=== PATIENT | female | born 1935 | race Two or more races ===

== ENCOUNTER 2017-02-05 19:54 | Observation (INO) | payer MEDICARE, MEDICAID ==
[~2017-02-05] VITALS: Ht 167.6 cm; Wt 61.3 kg
--- NOTE | 2017-02-05 20:20 | ED.REPORT ---
HPI-General Illness Date of Service Feb 05, 2017 ED Provider: Brock Gastelum MD The patient is a 81 year old female w/ a hx of DM2 and alcoholism who presents to the ED via EMS with 6 cm stage 4 sacral ulcer concerned that she is unable to adequately care for herself at home. She has been seen at [facility] 3 times in the last week and all 3 times has been found to not be detainable and has refused any care, hospitalization or intervention. Upon arrival here to [facility] the patient adamantly refuses any treatment or intervention. She states that she does not want to be here and would like to go home and be with her cat. She states that she does not have any food at home and has not eaten anything for 10 days. She states that she does not have a casting machine adjuster and admits that she is unable to care for herself at home. She states she is unable to leave her house to get groceries and that she has no one to get groceries for her. Patient states that she does not want to " the same time refusing hospitalization, refuses IV, refuses laboratory studies and demands to be discharged with a ride home. She denies any suicidal ideation. Nursing Notes Stated Complaint: REFUSING CARE AT HOME Nursing Notes Reviewed: Yes Allergies: Coded Allergies: No Known Allergies (Unverified , 02/06/17) Scheduled Amitriptyline (Amitriptyline) 25 Mg Tab 25 MG PO HS Aspirin (Aspirin) 81 Mg Tablet 81 MG PO DAILY Citalopram (Citalopram) 10 Mg Tablet 10 MG PO DAILY Furosemide (Furosemide) 40 Mg Tablet 40 MG PO QAM Metoprolol Tartrate (Metoprolol Tartrate) 25 Mg Tablet 25 MG PO BID Multivitamin (Multi Vitamin Daily) 1 Each Tablet 1 EACH PO DAILY Scheduled PRN Acetaminophen (Acetaminophen) 500 Mg Tablet 500 MG PO Q6H PRN PRN For Pain Ipratropium/Albuterol Sulfate (Iprat-Albut 0.5-3(2.5) mg/3 mL Inhalant Soln) 3 Ml Ampul.neb 3 ML IH Q6 PRN PRN For Shortness of Breath Sennosides (Senna) 8.6 Mg Tablet 8.6 MG PO BID PRN PRN For Constipation General Time Seen by MD: 20:14 Chief Complaint Other (stage 4 sacroiliitis ulcer) Hx Obtained From: Patient Arrived By: Ambulance Sudden in Onset?: Yes Onset Occurred: Onset unknown Symptom Duration: Since onset Location: : Back Severity: Current: No pain currently Associated with: Reports: Bleeding, Discharge Pertinent Negative: Pt denies other symptoms Past Medical History Past Medical History DM Smoking History Unknown if Ever Smoker Social History alcoholic lives by herself Other Social History: Local resident Ambulatory Status Independent Review of Systems feces on her Full Review of Systems Skin: Reports Rash (stage 4 sacroiliitis ulcer) Neurologic: Denies: Change LOC, Confusion, Dizziness, Headache, Lightheaded Psychiatric: Reports: Agitation Complete sys rev & neg: except as marked. Physical Exam Vital Signs reviewed Initial VS: Reviewed General/Constitutional: Awake chronically unwell appearing feces on herself indwelling holguin catheter with dark foul smelling urine Head / Eyes: Atraumatic, Normocephalic face and scalp atraumatic Mouth: Positive: Mucous membranes dry Respiratory / Chest: Atraumatic, Breath sounds NL, Breath sounds = bilat, No respiratory distress Cardiovascular: Heart rate NL, Regular rhythm, Heart sounds NL Right Leg / Calf: Positive: Ecchymosis present Left Leg / Calf: Positive: Ecchymosis present scattered echymosis on LE and left chest wall Color / Condition: Positive: Lesion present... Rash / Lesion Notes: 6 cm stage 4 sacroiliitis ulcer exposed bone present oozing bloody, purulent material Neurologic: Oriented X3, Speech NL linear, organized, and able to repeatedly verbalize that she does not want treatment or come into hopsital did not appear confused, intoxicated and her neuro is normal Re-Eval/Medical Decision Med Decision/Clinical Course The patient is a 81 year old female w/ a hx of DM2 and alcoholism who presents to the ED via EMS with 6 cm stage 4 sacral ulcer concerned that she is unable to adequately care for herself at home. She has been seen at [facility] 3 times in the last week and all 3 times has been found to not be detainable and has refused any care, hospitalization or intervention. Upon arrival here to [facility] the patient adamantly refuses any treatment or intervention. She states that she does not want to be here and would like to go home and be with her cat. She states that she does not have any food at home and has not eaten anything for 10 days. She states that she does not have a casting machine adjuster and admits that she is unable to care for herself at home. She states she is unable to leave her house to get groceries and that she has no one to get groceries for her. Patient states that she does not want to " the same time refusing hospitalization, refuses IV, refuses laboratory studies and demands to be discharged with a ride home. She denies any suicidal ideation. Here in the emergency department the patient is chronically ill appearing, appears dehydrated and is covered in her own feces with a large sacral decubitus ulcer and exposed bone present. Despite the patient's obvious inability to care for herself at home she is cognitively intact and alert/ oriented. She is able to express insight into her current problems and inability to adequately care for herself. Despite my verbalized concerns to the patient that she is at significant risk of due to malnutrition, dehydration and infection she states that he will not consent to IV access, laboratory studies or admission to the hospital. She repeatedly adamantly demands to be discharged and taken home. Despite my significant concerns about this patient's welfare I do not see that she can necessarily be detained as she demonstrates decisional capacity. I made multiple attempts to contact the patient's children however they did not answer their phone. The patient was seen and evaluated by emergency department public health social worker Kena Sood who agreed that the patient demonstrated decisional capacity and was not detainable. We made multiple attempts to convince the patient to be admitted to the hospital however she continued to refuse admission or any treatment or intervention whatsoever. She did however except a meal which she ate and entirety. EMS was contacted to take the patient back to her care facility however they expressed concerns that the patient had been found in absolute squalor and was eating cat food in her apartment. EMS refused to take the patient home. I explained to the patient that while we could not detain her against her well that she had no ride home. At that point, the patient accepted admission to the hospital. This admission was further discussed with the hospital hospice plan administrator destination imagination coordinator who felt that this was the appropriate course of action. The patient was admitted to the hospitalist service and while I feel that she would benefit from further medical workup she continues to refuse at this time. It is our hope that the patient will eventually consent to further treatment and placement in a care facility as I do not feel that she is safe for discharge. Should she however continued to refuse intervention or additional support this will pose significant ethical dilemmas as she seems to be relatively cognitively intact with ability to make her own decisions. Time of Eval: 20:54 Re-Evaluation/Progress Note: Pt rechecked with public health social worker. She states that she is very hungry and has not eaten for [address] Josefina Hassan is the pt's PCP. Time of Eval: 22:34 Re-Evaluation/Progress Note: Informed pt that there is no way for her to be transported home. Plan for food and hospital admission. Consultation #1: Call Returned at: 20:36 Note: Called patient's daughter Marissa ([phone]) Call went to [employer]wail Consultation #2: Call Returned at: 20:54 Note: Case discussed with public health social worker. Consultation #3: Referral / Consult Name: Narciso Abreu MD Consulted With: Hospitalist Call Returned at: 22:43 Plant Production Worker: Agrees with eval, Agrees with plan Note: Case discussed with Dr. Abreu. Counseled Regarding: Diagnosis, Lab results, Need for admission Discharge & Departure Primary Impression: Failure to thrive Failure to thrive age range: in adult Qualified Code: R62.7 - Adult failure to thrive Additional Impressions: Sacral ulcer Non-pressure ulcer stage: unspecified non-pressure ulcer stage Qualified Code : L98.499 - Non-pressure chronic ulcer of skin of other sites with unspecified severity Dehydration Malnutrition Disposition: ADMITTED TO HOSPITAL Discharge Condition All VS Reviewed: Yes Condition: Stable Referrals: [facility] Residency [facility] Na Attestation Portion of this note were transcribed by Kay Gregory. I, Dr. Gastelum, personally performed the history, physical exam, and medical decision-making: I reviewed and confirmed the accuracy for the information in the transcribed note. Signed by: na Anderson, 02/05/17 2100 copies to: [facility] Res[facility] Brock Gastelum MD Feb 05, 2017 20:20 Kay Gregory Feb 05, 2017 20:29 Brock Gastelum MD Feb 05, 2017 20:20 Kay Gregory Feb 05, 2017 20:29
[2017-02-05 20:35] VITALS: BP 139/39; PULSE 60; RESP 22; O2SAT 98
[2017-02-05 21:35] VITALS: BP 121/79; PULSE 75; RESP 21
[2017-02-05] MEDS ORDERED: Alum-Mag Hydrox-Simeth 30 mL Suspension PO PRN (22:40)
[2017-02-05] MEDS ORDERED: Ondansetron 2 mg/mL 2 mL Inj IVPUSH PRN (22:40)
[2017-02-05] MEDS ORDERED: AMT25T PO (23:08)
[2017-02-05] MEDS ORDERED: METO25TA6 PO (23:08)
[2017-02-05] MEDS ORDERED: FURO40TA4 PO (23:08)
[2017-02-05] MEDS ORDERED: ACET-171 PO (23:08)
[2017-02-05] MEDS ORDERED: IPRA3AMP IH (23:08)
[2017-02-05] MEDS ORDERED: MULT-1018 PO (23:08)
[2017-02-05] MEDS ORDERED: CITA10TA9 PO (23:08)
[2017-02-05] MEDS ORDERED: SENN-133 PO (23:08)
[2017-02-05] MEDS ORDERED: ASPI-973 PO (23:13)
[2017-02-05] MEDS ORDERED: HYDR-4003 PO (23:13)
[2017-02-05] MEDS ORDERED: Albuterol-Ipratropium 3 mL Inhalation Solution INHALATION PRN (23:35)
--- NOTE | 2017-02-06 00:36 | NUR ---
Admit Pt arrived onto unit and transferred to bed by ED at approx 0002. Eleanor Garza RN gave report to this nurse. Pt extremely agitated and expressing disapproval at being at the hospital. Refusing care. A&O, Incontinent, House cath draining, VSS from earlier in ED, however, pt refusing currently. Cleaned patient from feces on bottom and carefully laid ACD pad on large 5-6cm deep wound on sacrum. Wound has purulent sanguinous fluid draining from site. Used chucks pads under patient. Attempting to make patient as comfortable as possible, pt preferring laying on right side. After some time listening and feeding applesauce and jello, patient rather pleasant and agreeable, but would not liked to be touched or examined in any way. Attempting to get some history from patient, but limited.
--- NOTE | 2017-02-06 01:22 | NUR ---
Refused Medication/Vital Signs/Turning Despite education, pt refusing amitriptyline ("I don't want any medications, I don't want to set off my alcoholism, you are sweet, but I don't take medication"), vital signs ("that would be the 5th time since I was here. they are normal!"), turning ("I don't want to be turned, or touched. I'm comfortable")
--- NOTE | 2017-02-06 01:25 | NUR ---
Hunger Pt expressed that she is starving and hasn't eaten in 10 days. Very pleased to be eating, as of yet, 2 puddings, 2 jellos, 1 applesauce. Appears she isn't done yet either. Pt pleasant and agreeable, however, refuses all other care.
--- NOTE | 2017-02-06 02:52 | PCM.HPMED ---
Subjective Date of Service Feb 06, 2017 Primary Provider: Admitting Physician: Narciso Abreu MD Primary Care Physician: Juventino Attending Physician: Narciso Abreu MD History of Present Illness: Patient is an 81-year-old woman who was brought to the [facility] emergency department by EMS after being declined services at [facility] emergency department due to multiple visits and patient refusing treatment. Reportedly, she presses her life alert button often and is bedridden and unable to take care of self, she reports not eating for the last 10 days because she does not have a caregiver. She says she is angry at the software design engineer brought her to the hospital after she told him not to, however she reportedly lays in her bed 24 hours a day, unable to walk, and has a substantial bedsore. In the ER vital signs were 36.8, pulse 60 heart rate 22 blood pressure 139/39 and 98% on room air. She declined all care only requesting food. States she is nauseous and has abdominal pain from not eating, and declined to answer other questions regarding her health for current review of systems stating "it is in the chart" and she is hungry. Due to the patient declining service, and only stating being hungry she was cleared for discharge whenever EMS stated they would not bring her back to her home due to her inability to care for herself, citing she was found eating cat food for survival in her home. beet worker in the emergency room physician in conjunction with Hospital optics engineer rat poisoner discussed the case, and when presented with the choices patient agreed for admission through the night. Review of Systems: Partial ROS obtained secondary to patient's refusal to answer many questions. 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 does not use currently) Hx Substance Use: No Hx Tobacco Use: No Smoking Status: Unknown if Ever Smoker Living Arrangement: Alone Exam Vital Signs Vital Sign - Last Date Time Temp Pulse Resp B/P Pulse Ox O2 Delivery O2 Flow Rate FiO2 02/05/17 21:35 36.8 75 21 121/79 02/05/17 20:35 98 Room Air Exam General: Laying in bed, no apparent distress. Foul-smelling, disheveled, unkept HEENT: Normocephalic, atraumatic, EOMI grossly, right eye is mildly erythematous , eyes are matted, there is substantial dried and crusty discharge around the eyes, halitosis, poor dentition, matted hair, very hard of hearing. Cardiovascular: Regular rate and rhythm, no clicks murmurs rubs, peripheral pulses 2/4 equal bilaterally Pulmonary: Very coarse breath sounds diffuse, expiratory wheezing, diffuse rhonchi. Wet cough. Abdominal: Soft to palpation, bowel sounds present 4, Negative rebound. Extremities: No edema appreciated. Bilateral feet are severely wounded, almost appeared to be traumatic in nature, toenails are cracked and flaking, foot drop. Neuro: Mild tremor to upper extremities when attempting to move spoon to her mouth MSK: Patient was unable to demonstrate inability to roll off of her left side, there is a substantial decubitus ulcer to her back -6 cm sacroiliac ulcer, with exposed bone, purulent and bloody discharge Assessment & Plan 81-year-old woman with severe self-neglect and inability to care for self, [facility] eating Food for survival, declines all medical care. Decubitus ulcer, present on admission, evaluation and treatment initiated. Wound care consultation Nursing wound management. Inability to care for self resulting in self-neglect, POA, active Social work found patient is competent and able to make self decisions. Full diet while here. Patient declines all help at this point manager copy and pediatric social worker consultations. DVT prophylaxis declined Pain management with home medications GI prophylaxis not indicated Patient admitted under observational status with expected length of stay less than 2 midnights for severity of present symptoms, complexities of treatment plan and risk for adverse events CODE STATUS: Full code Pain Evaluation: Adequate Pain Control VTE Prophylaxis: Other (Pt declining all medical services) Resuscitation Status: CPR: Attempt Resuscitation Attending Statement The patient was seen and examined together with Dr. Owen on 02/05 and I agree with the history, exam and plan as outlined in the note above. Juanito Lin DO Feb 06, 2017 02:52 Narciso Abreu MD Feb 06, 2017 19:34
--- NOTE | 2017-02-06 05:05 | NUR ---
Refusal to Turn Despite gentle coaxing and education, pt adamantly refused to turn even slightly to get a pillow under one side. Unable to assess pressure ulcer at this time. Pt A&O and understands her rights as a patient to refuse. Will continue to check on patient frequently and assess openness to turning at a later time.
--- NOTE | 2017-02-06 05:59 | PCM.PNMED ---
Subjective Date of Service Feb 06, 2017 Subjective Patient is seen and examined. She is refusing to participate in her medical care. She says that she has a lot of anger. She reiterated the fact that she is a recovered alcoholic, she gave me her medical history. She also told me that the paramedics would not take [facility] to [facility] because the hospital told him not to bring her there anymore. She seems to be cognizant of her medical conditions, chooses not to seek medical care. She says she has not eaten anything in 10 days before coming here and asking for food. She is refusing to be examined, refusing vitals labs, and a physical examination Exam Vital Signs Vital Sign - Last Date Time Temp Pulse Resp B/P Pulse Ox O2 Delivery O2 Flow Rate FiO2 02/05/17 21:35 36.8 75 21 121/79 02/05/17 20:35 98 Room Air Exam General: Laying in bed, no apparent distress. Foul-smelling, disheveled, unkept , hirsutism HEENT: Normocephalic, atraumatic, EOMI grossly, right eye is mildly erythematous , , halitosis, poor dentition, matted hair, very hard of hearing. Cardiovascular: Patient would not stop talking during this examination, unable to appreciate cardiac sounds Pulmonary: Very coarse breath sounds diffuse, expiratory wheezing, diffuse rhonchi. Wet cough. Abdominal: Soft to palpation, bowel sounds present 4, Negative rebound. Extremities: No edema appreciated. Bilateral feet are severely wounded, almost appeared to be traumatic in nature, toenails are cracked and flaking, foot drop. Neuro: Alert and oriented MSK: Patient was unable to demonstrate inability to roll off of her left side, there is a substantial decubitus ulcer to her back -6 cm sacroiliac ulcer, with exposed bone, purulent and bloody discharge Psych: Very irritable when asked to allow a physical examination She appears to have become a bit more n as more ppl asked her quesitons, IVs and Medications IV Fluids None Medications Reviewed: Medications were reviewed in detail Medications Amitriptyline, aspirin, citalopram, furosemide, metoprolol tartrate, multivitamin, DuoNeb, oxycodone Lab and Diagnostics Not performed Assessment & Plan 81-year-old woman with severe self-neglect and inability to care for self, presents via EMS after being found living in [place], eating Food for survival, declines all medical care. Decubitus ulcer, present on admission, evaluation and treatment initiated. -- Wound care consultation -- Nursing wound management. -- Oxycodone 5 mg every 4 hours when necessary as she is in terrible pain and return her to examine the wounds Inability to care for self resulting in self-neglect, POA, active -- I reviewed her ER documents admission time notes, she continues to refuse care and seems to be here only for food. -- Social work found patient is competent and able to make self decisions. -- Full diet while here. -- Patient declines all help at this point -- manager motor and social media coordinator consultations. -- Consulted Dr. Quick in the regimen decisional Capacity. The appreciate his recommendations Wheezing and cough: -- Albuterol treatments when necessary -- Tessalon Perles when necessary DVT prophylaxis declined -- Pain management with home medications -- GI prophylaxis not indicated Patient admitted under observational status with expected length of stay less than 2 midnights for severity of present symptoms, complexities of treatment plan and risk for adverse events Disposition: Patient may have to go home with home care help, Meals on Wheels. [facility], she was under the program and was discharged. They had recommended for her to be placed in [facility] prior to requesting their service again. CODE STATUS: Full code Pain Evaluation: Pain not Controlled VTE Prophylaxis: Other (Pt declining all medical services) Resuscitation Status: CPR: Attempt Resuscitation Time spent 30 min Felicity Edwards DO Feb 06, 2017 05:59
--- NOTE | 2017-02-06 10:00 | NUR ---
Pt politely declined to be repositioned for swallowing evaluation. CEMENT SPRAYER HELPER will follow and attempt eval at another time.
[2017-02-06] MEDS ORDERED: Albuterol 2.5 mg/3 mL Inhalation Solution NEB PRN (11:00)
[2017-02-06 12:41] VITALS: BP 111/64; PULSE 76; RESP 18
--- NOTE | 2017-02-06 15:05 | NUR ---
Refusal of care Pt. has been refusing almost all care today. Most concerning is her refusal for me to turn her or even assess/dress her sacral pressure ulcer. We turned her this morning with MD present to look, and pt. was yelling and screaming for us to stop and leave her alone, and that she didn't want anyone to touch it or dress it. I talked with her about how she could get very ill or from the untreated ulcer, and she said she was ok with that, saying "I'm 81 years old and I have to go somehow". MD, social work, rn charge, continuous towel roller and RN supervisor inspection and testing aware of the situation. Denies pain when laying on her back, but experiences severe pain with any movement. Refusing any pain medications at this point despite education. Will continue to encourage treatment/ turns/ skin care.
--- NOTE | 2017-02-06 15:19 | NUR ---
Case Management: Late entry for noon today - Explained PHILIPPE info to pt. Pt states she knows she is in the hospital, but did not wish to discuss her admission status in any detail. Pt stated she wanted to rest and for RADHA RN to go away. Discussion witnessed by MOC skills auditor, who cosigned PHILIPPE. Signed original placed on hard chart and copy provided to pt. RADHA Lisa RN
--- NOTE | 2017-02-06 15:47 | PCM.CHPPSY ---
[facility] Date of Service Feb 06, 2017 Admission Date/Time Feb 05, 2017 at 23:17 Reason for Admission The patient is an 81-year-old woman with multiple medical issues who is currently bedridden who reportedly presses her life alert button frequently and is taken to the hospital for assessment. The patient has been uncooperative with treatment at [facility] and at [facility] and is referred to psychiatry for assessment of decisional capacity. Provider requesting consult: Felicity Edwards DO Primary Physician Attending Physician: Narciso Abreu MD Other Physician: Source of Information: Patient Interview, Chart Review Chief Complaint Chief Complaint "I am scared to that if they mess with it [ulcer] something bad will happen." The patient is an 81-year-old female with multiple medical issues who was brought to [facility] after reportedly pressing her life alert button. She reportedly has not eaten in the last 10 days as she does not have a caregiver and her Meals on Wheels was discontinued as she did not have a caregiver. She reportedly was angry at the tipping machine operator automatic who brought her to the hospital after they were instructed not to. According to notes in the patient' s own report she is bedridden and unable to attend to her needs. She reports wearing a diaper but does not change it due to lack of mobility. She reports that she has relied upon neighbors and family members to assist her but her primary assist from her neighbor is no longer available as that individual is now in a correction. According to EMS, the patient was eating cat food for survival in the home. The patient reports that she is diabetic and cannot feel the wound but has looked at it with a mirror to assess whether it is progressing. She notes that it is currently stable and she is concerned that if medical procedures are performed upon it the homeostasis will be changed. The patient is profoundly hard of hearing which complicates the interview. She is aware that failure to treat her wound could result in a serious infection and she could ultimately . She also states that she is concerned that if there are significant medical interventions either her pain or the condition of the wound could worsen. The patient would like to have a caregiver so that she can have Meals on Wheels again. She reports her lining caser for [facility] Bao Pike in [place] will not sign on new caregiver. She states that she liked two of her caregivers one was Raquel who wanted to move in with her boyfriend and the other was Darlene who moved to [place]. She denies any significant psychiatric history including psychosis or depression and reports one episode of anxiety many years ago. Past psychiatric history: No inpatient or outpatient treatment reported. Home Medications Per H&P: Acetaminophen 500 mg by mouth every 6 hours for pain Amitriptyline 25 mg at night Aspirin 81 mg daily Citalopram 10 mg daily Furosemide 40 mg by mouth every morning Vicodin 53 25 mg every 4 hours when necessary for pain DuoNeb inhalers every 6 hours for dyspnea Metoprolol tartrate 25 mg by mouth twice a day Multivitamin Sennosides 8.6 mg tablet twice a day when necessary for constipation Social history: The patient is currently living in a one-bedroom apartment with her cat. She reports that neighbors are assisting with care of the cat. Past Medical History Other Pertinent History: Per patient - open heart surgery 13 years ago. Allergies Coded Allergies: No Known Allergies (Unverified , 02/06/17) Home Medications Scheduled Amitriptyline (Amitriptyline) 25 Mg Tab 25 MG PO HS (Reported) Last Taken: 25 MG on Unknown Date & Time Aspirin (Aspirin) 81 Mg Tablet 81 MG PO DAILY (Reported) Last Taken: 81 MG on Unknown Date & Time Citalopram (Citalopram) 10 Mg Tablet 10 MG PO DAILY (Reported) Last Taken: 10 MG on Unknown Date & Time Furosemide (Furosemide) 40 Mg Tablet 40 MG PO QAM (Reported) Last Taken: 40 MG on Unknown Date & Time Metoprolol Tartrate (Metoprolol Tartrate) 25 Mg Tablet 25 MG PO BID (Reported) Last Taken: 25 MG on Unknown Date & Time Multivitamin (Multi Vitamin Daily) 1 Each Tablet 1 EACH PO DAILY (Reported) Last Taken: 1 TABLET on Unknown Date & Time Scheduled PRN Acetaminophen (Acetaminophen) 500 Mg Tablet 500 MG PO Q6H PRN PRN For Pain ( Reported) Last Taken: 500 mg on Unknown Date & Time Hydrocodone-Acetaminophen 5-325 mg (Hydrocodone-Acetaminophen 5-325 mg) 1 Each Tablet 1 TABLET PO Q4H PRN PRN For Pain (Reported) Last Taken: 1 TABLET on Unknown Date & Time Ipratropium/Albuterol Sulfate ( Iprat-Albut 0.5-3(2.5) mg/3 mL Inhalant Soln) 3 Ml Ampul.neb 3 ML IH Q6 PRN PRN For Shortness of Breath (Reported) Last Taken: 3 ML on Unknown Date & Time Sennosides (Senna) 8.6 Mg Tablet 8.6 MG PO BID PRN PRN For Constipation (Reported) Last Taken: 8.6 MG on Unknown Date & Time Past Medical History Past Medical/Surgical History Current and Past Current/Past: Per H&P: 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 Left ventricular systolic dysfunction related to ischemia Hemorrhagic cystitis NSTEMI's Multiple sclerosis chronic progressive type Diabetes Surgical History CABG 4 vessels 2001 Currently ?: No Hx Hospitalization: Yes Hx Surgeries: Yes Mental Status Exam Vital Signs Vital Signs Date Time Temp Pulse Resp B/P Pulse Ox O2 Delivery O2 Flow Rate FiO2 02/06/17 12:41 36.9 76 18 111/64 Room Air Appearance: Disheveled Attitude: Cooperative, Other (very hard of hearing) Behavior: No unusual behavior Affect: Well Modulated/Appropriate Mood: Euthymic Thought Process/Associations: Logical/Sequential Speech Production: Normal Speech Rate: Normal Speech Articulation: Normal, Other (mild dysarthria due to edentulous status) Thought Content: Appropriate Danger to Self/Suicidal Ideati: None Danger to Others: None Orientation: Person, Place ([facility]), Date (day after flag day i.e. February 06.), Situation Memory: Untestable Estimate Intellectual Function: Average Attention/Concentration & Cogn: Impaired Cognitive Testing Method: Other (unable to assess due to severity of hearing loss) Insight: Limited Judgement: Limited Mental Health Plan The patient is an 81-year-old female with multiple medical issues who is admitted after pressing her life alert button. The patient reportedly does not have caregivers in the home and has been living on cat food. The patient is aware of her medical peril and reports that she would ideally like a caregiver in the home or to assist her with her meals so that she can have Meals on Wheels again. She appeared to understand that should her wound worsen at home she could potentially from her wounds. As individuals are assumed to possess capacity unless proven otherwise and the patient appears to have a basic understanding of her needs and is requesting assistance with same, the patient appears to possess capacity and I concur with the original social work decision regarding decisional capacity. That being said, the patient clearly needs assistance in the home and is aware of this. [place] AXIS I: Rule out mild cognitive impairment versus hearing loss AXIS II: Deferred AXIS III: See past medical history AXIS IV: Severe with no caregiver in the home, bedridden, multiple medical issues. AXIS V: GAF 40 Treatments 1. The patient appears to possess basic decisional capacity regarding medical care. 2. Discussed with social work who will attempt to contact Bao Pike at [facility] regarding an in-home caregiver. 3. The patient is not currently insisting on discharge and was informed that should she continue to not cooperate with medical treatment she may be discharged as she has indicated a desire to return home. The patient understood this however would like to see if in-home care can be provided prior to discharge. She would also like to have her Meals on Wheels reinstated. 4. Should the patient reports suicidal thoughts she should be referred to the [facility] for assessment. 5. Please feel free to contact psychiatry should you have further questions. Bao Quick MD Feb 06, 2017 15:47
--- NOTE | 2017-02-06 15:51 | NUR ---
Wound note 81 yo female admitted with failure to thrive or care for herself. Patient reportedly refusing just about every intervention this admission so I have no labs to review. 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 I was able to slip an abd pad over it to help keep her bedding clean as the wound does bleed. She also presents with an unstageable ulcer at her right great toe which is dry and approximately 2 cm in diameter, a stage 2 ulcer at her left great toe approximately 2 cm x 2 cm which has a bandaid on it and left lateral forefoot unstageable ulcer which is dry and uncovered. This is a sad case which I suspect will need some sort of behavioral management before any treatment plan for these wound issues can be implemented. Patient is on a low airloss bed but refuses to turn or reposition. At this point I'm not sure what wound can do in this case, will recheck tomorrow.
--- NOTE | 2017-02-06 17:02 | NUR ---
NUTRITION ASSESSMENT: ASSESS: 81 YO female admitted for inability to care for self. Pt is bedridden at home per notes. Pt is refusing almost all care except food. Psych consult has been ordered. It is reported that pt has not eaten food in 10 days but has been requesting food here. Concern for potential refeeding syndrome if pt has not eaten in 10 days, but unable to assess for this currently as pt is refusing to have labs drawn. PMHx: CABG, NSTEMI, multiple sclerosis, Diabetes. LABS: Pt currently refusing lab draws. MEDS: Reviewed. GI: BM x 1 today. SKIN: Stage IV sacral pressure injury with significant necrotic soft tissue and bone exposed, unstageable ulcer on R great toe and L lateral forefoot, stage 2 ulcer on L great toe. CURRENT WT: 61.3 kg. DIET: Soft. No po intake reported, but RN states pt is eating and requesting food in notes. EST. NEEDS (SKIN ISSUES): 1026-0000 kcals (35-40 kcals/kg BW), 90-125 g protein (1.5-2.0 g/kg BW) NUTRITION DIAGNOSIS: 1.) Increased nutrient needs related to increased demand for nutrients for wound healing as evidenced by multiple skin issues. NUTRITION INTERVENTION: 1.) Est. needs may need to be adjusted pending any lab values that may contraindicate current est. needs. 2.) Soft diet should be adequate to meet almost 100% of pt est. needs, but hesitant to add supplements with significant carbohydrates as pt is at increased risk for refeeding if pt truly has not eaten food in 10 days. 3.) Will add angela BID with diet sprite to continuous drier helper in wound healing. MONITOR / EVAL: PO intake, labs, nutritional status, POC. Follow per high nutritional risk guidelines.
--- NOTE | 2017-02-06 17:07 | NUR ---
Social Work: Initial Assessment Data: Pt is an 81 y/o female admitted for inability to care for self. Pt's PCP is not listed. Pt's insurance is Medicare with [facility] supp. Readmit score not listed. ENGINEERING SCIENTIST met with pt at bedside, role explained. Pt initially stated she did not want to talk with ENGINEERING SCIENTIST, but then began answering questions. Pt states she lives alone in [place] where she stays in bed all day and has a cat. Pt does not drive, cannot sit due to her wounds, has no hx of HH or SNF, no LTC or VA benefits. Pt is not a caregiver. ENGINEERING SCIENTIST asked who feeds the cat and she stated that she hasn't fed the cat in over a week. She states "people help me out" when asked about where she gets food. ENGINEERING SCIENTIST asked who helps her and stated Kerry, and that Kerry works for [employer]. ENGINEERING SCIENTIST asked if she may have meant [employer], she was unsure. Pt has [facility], Bao Coelho is her ed case manager. ENGINEERING SCIENTIST requested UR specialist fax clinicals to him. Pt reports having a son and a daughter in the [place] area, but that she does not see them often. Pt states she wants to go home. ENGINEERING SCIENTIST asked how she plans to get home and she said "the same way I got here, by the EMS". ENGINEERING SCIENTIST said to pt "Do you know that if you go home you will likely if you don't get medical treatment?" Pt stated, "that would be a welcomed thing. God hasn't taken me yet, but I think He's getting ready". Wound care spoke with ENGINEERING SCIENTIST, reported pt has a 7cm by 7cm sacral wound which are 4th degree and down to the bone. Psych saw pt and has determined that she is decisional. Assessment: Pt who is in need of caregiving. Plan: ENGINEERING SCIENTIST will discus possibility of pt going home with Hospice with MD on 02/07. ENGINEERING SCIENTIST will contact pt's [facility]OV[employer] worker tomorrow. ENGINEERING SCIENTIST will inquire regarding pt's caregiver "Kerry". ENGINEERING SCIENTIST will make an APS report of self neglect on 02/07. ENGINEERING SCIENTIST will continue to follow. YANA Alvarez Addendum: 02/06/17 at 1722 by IDA HUI Amended: Links added.
[2017-02-06 20:06] VITALS: PULSE 92; RESP 18; O2SAT 94
[2017-02-07 00:06] VITALS: RESP 18
--- NOTE | 2017-02-07 02:26 | NUR ---
Refusal of Care Pt pleasant and expresses gratitude as long as she is able to choose/refuse care. Currently refusing all evening meds, vital signs, assessments. Puts call light on to voice concern over cat left at her home, her desire to leave the hospital and return home, her distaste of some employees, and to share stories from her past. She has asked for breathing tx which have been given. Her lungs are very wet and coarse, tesslon pearls were ordered, but despite education, she is refusing to have any and all medications. Continuing to gently encourage care while allowing patient autonomy.
--- NOTE | 2017-02-07 07:47 | NUR ---
spiritual care: (late entry) staff/pt request lengthy conversational visit. pt shared personal history, detailed, reflective manner. Pt expressed her anger and frustration with care environment and keturah her concern for her cat. Pt connected to [employer] [address] [place] [id number] [place]. Located name and possible contact numbers of pastors Nikki and Pablo Gross through office staff for possible social support. Left these numbers with staff. pt described her large family, close relationship to son but her reluctance to contact him because of distance and her disinclination to contact dtr. Pt shared of times of personal stress and loss and her coping through dannielle, personal resiliency and her close family relations. She shared details around her brothers about 6 years ago and explored the family value of self-sufficiency in terms of health care and dealing with medical needs. available to follow in pm as needed.
--- NOTE | 2017-02-07 08:15 | PCM.PNMED ---
Subjective Date of Service Feb 07, 2017 Subjective Patient is asking to be left alone to sleep. She agrees that she is only wanting basic needs fulfilled and medical care to her, is not one of them. She wants to see her cat, she appears to think [place] is not a good place to go to. Exam Vital Signs Vital Sign - Last Date Time Temp Pulse Resp B/P Pulse Ox O2 Delivery O2 Flow Rate FiO2 02/07/17 00:06 18 02/06/17 20:06 92 94 02/06/17 12:41 36.9 111/64 Room Air Intake and Output 02/06/17 02/06/17 02/07/17 Cumulative From/Thru 15:00 23:00 07:00 02/05/17 20:35 - 02/07/17 06:22 Intake Total 450 ml 996 ml Output Total 300 ml 250 ml 550 ml Balance 150 ml -250 ml 446 ml Intake Oral 450 ml 996 ml IV Total 0 ml 0 ml Output Urine Total 300 ml 250 ml 550 ml # Bowel Movements 1 Exam General: Dishevelled, maladorous, hursuitic HEENT: Gaunt appearing, poor dentition Abd: Flat, non distended Resp: No increased WOB Skin: Ulcers on both feet Psych: Some what irritated, resigned Neuro: No focal deficits Pt declined IVs and Medications IV Fluids none Medications Reviewed: Medications were reviewed in detail Assessment & Plan 81-year-old woman with severe self-neglect and inability to care for self, presents [facility] EMS [facility], eating Food for survival, declines all medical care. Decubitus ulcer, present on admission, evaluation and treatment initiated. -- Wound care consultation -- Nursing wound management. -- Oxycodone 5 mg every 4 hours when necessary as she is in terrible pain and return her to examine the wounds -- 02/07 Odorous sacral ulcer, pt did not let me examine Inability to care for self resulting in self-neglect, POA, active -- I reviewed her ER documents admission time notes, she continues to refuse care and seems to be here only for food. -- Social work found patient is competent and able to make self decisions. -- Full diet while here. -- Patient declines all help at this point -- route delivery manager and professor of social work consultations. -- Consulted Dr. Quick in the regimen decisional Capacity. The appreciate his recommendations -- Dr. Rios feels she is decisional. I agree with him, as mentioned in yesterday's note she appears to be cognitively intact. Wheezing and cough: -- Albuterol treatments when necessary -- Tessalon Perles when necessary DVT prophylaxis declined -- Pain management with home medications -- GI prophylaxis not indicated Patient admitted under observational status with expected length of stay less than 2 midnights for severity of present symptoms, complexities of treatment plan and risk for adverse events Disposition: Patient may have to go home with home care help, Meals on Wheels. [facility], she was under the program and was discharged. They had recommended for her to be placed in intermediate prior to requesting their service again. Pt not interested in NH placement. She may have to d/c home with home care help. CODE STATUS: Full code Pain Evaluation: Adequate Pain Control VTE Prophylaxis: Other (Pt declining all medical services) Resuscitation Status: CPR: Attempt Resuscitation Time spent 20 min Felicity Edwards DO Feb 07, 2017 08:15
--- NOTE | 2017-02-07 08:41 | NUR ---
Social Work: APS report made APS report made confirmation number [id number]. MARBLE MACHINE TENDER requested a phone call back to [facility] [place] [place] MARBLE MACHINE TENDER cell phone. YANA Alvarez
--- NOTE | 2017-02-07 09:41 | NUR ---
COMBAT SYSTEMS OFFICER consult received. Pt politely refused evaluation two days in a row. Per nursing, pt has been tolerating a soft diet with nectar thick liquids. Per RN, no problems passed in report or noted in chart. COMBAT SYSTEMS OFFICER will d/c. Please reconsult with new or worsening condition.
--- NOTE | 2017-02-07 11:04 | NUR ---
Palliative Care Palliative Care received verbal order from Dr Edwards 02/07/17 to assist with (?) goals of care. Patient was admitted 02/05/17. She lives alone in [place]. Has history of being on hospice (HNW). No contacts listed. Per notes, she has a son and daughter in the [place] area who she seldom see's. Palliative Care will try to assist with support while patient is here. Patient has been refusing care. Linnette Doan
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
[2017-02-07 14:34] VITALS: BP 113/68; PULSE 78; RESP 18; O2SAT 94
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
--- NOTE | 2017-02-07 15:24 | NUR ---
NUTRITION FOLLOW-UP: ASSESS: 81 YO female admitted for inability to care for self. Pt is bedridden at home per notes. Pt is refusing almost all care except food. She refused ST evaluation so she continues on a soft diet w/NT liquids. It is reported that pt has not eaten food in 10 days but has been requesting food here. No PO has been recorded since pt was admitted. Concern for potential refeeding syndrome if pt has not eaten in 10 days, but unable to assess for this currently as pt is continue to refuse to have labs drawn. Pt is refusing to have her wounds treated. Psych deemed pt decisional. PMHx: CABG, NSTEMI, multiple sclerosis, Diabetes. LABS: Pt currently refusing lab draws. MEDS: Reviewed. GI: BM x 1 02/06 SKIN: Stage IV sacral pressure injury with significant necrotic soft tissue and bone exposed, unstageable ulcer on R great toe and L lateral forefoot, stage 2 ulcer on L great toe. CURRENT WT: 61.3 kg. DIET: Soft. No po intake reported, but RN states pt is eating and requesting food in notes. EST. NEEDS (SKIN ISSUES): 9191-0541 kcals (35-40 kcals/kg BW), 90-125 g protein (1.5-2.0 g/kg BW) NUTRITION DIAGNOSIS: 1.) Increased nutrient needs related to increased demand for nutrients for wound healing as evidenced by multiple skin issues.--PERSISTS NUTRITION INTERVENTION: 1.) Est. needs may need to be adjusted pending any lab values that may contraindicate current est. needs. 2.) Soft diet should be adequate to meet almost 100% of pt est. needs, but hesitant to add supplements with significant carbohydrates as pt is at increased risk for refeeding if pt truly has not eaten food in 10 days. 3.) Will add angela BID with diet sprite to roll up helper in wound healing. MONITOR / EVAL: PO intake, labs, wounds, GI, nutritional status, POC. Follow per high nutritional risk guidelines.
--- NOTE | 2017-02-07 15:26 | NUR ---
Palliative care note Attempted to see pt today with Dr.s Jaime and Nitza. Pt angry and vehemently denied all requests to speak and would not answer any questions. Phone call to Hospice, note that she was on service from 06/22/16 until 08/30/16. Note that she was discharged from service as no longer being appropriate for care. Have spoken to Linda in medical records at [facility] who is kind enough to send over all [employer]ER notes, as well as nursing notes and last MD note. Made an additional copy and one is left in PC office and one is placed on pt chart. Am also able to procure pt family and contact information. 1. Son Henrik Bañuelos at [phone] 2. Daughter in law Francia at [phone]. 3. Marissa (relationship unknown) at [phone] Notes reference a daughter, unclear if that is who Marissa is. Both Henrik and dtfina are noted to live in the [facility] area. Pt cat is named Jud. She also is quite proud of her affiliation with AA and reports that she is in touch with AA members. Phone call to Fernanda MILLAN, dcp re: above. She notes that plan is for pt to return to home on 02/08/17. Fernanda to review [facility] notes on Sat. She is aware that they are in the pt chart. P: Palliative care to follow as needed. Merly YOUNGBLOOD, CCM
--- NOTE | 2017-02-07 19:08 | NUR ---
spiritual care: follow up pt sleeping. conferred with nursing staff about identified spiritual/emotional/social needs, possible approaches and plan of care.
--- NOTE | 2017-02-07 19:27 | NUR ---
Refusal of Care Patient has refused almost all care today. Medications, assessments, meals, and turning were all refused multiple times. Patient continues to refuse turning or dressing changes of sacral wound despite education. Pt continues to state "I don't care, I'm too tired", and then would stop talking and refuse to speak. Patient accepted vitals once this shift. Patient received call from [place] police department in room today regarding her cat, but refuse to talk to them. MD, social work, charge nurse all aware of situation.
[2017-02-07 22:52] VITALS: BP 136/53; PULSE 93; RESP 20; O2SAT 91
[2017-02-08] MEDS ORDERED: Albuterol 2.5 mg/3 mL Inhalation Solution NEB PRN (03:25)
[2017-02-08] MEDS ORDERED: Albuterol-Ipratropium 3 mL Inhalation Solution INHALATION PRN (03:25)
--- NOTE | 2017-02-08 04:37 | NUR ---
Behavior Pt. calm, pleasant in the beginning of the shift, accepted vitals and assessment, offered snacks and accepted, refused to be reposition and change, requested neb tx for coughing and wheezes, pt. awake most of the night watching TV, Hourly checks, call light in reach at all times and will continue to monitor.
[2017-02-08 08:00] VITALS: BP 111/70; PULSE 102; RESP 16; O2SAT 97
--- NOTE | 2017-02-08 11:09 | NUR ---
Social Work: Readiness for Discharge D: Pt is on day 3 of stay admitted for inability to care for self. Per RN and MD, Pt continues to decline medical care. Pt declined to speak with palliative care MD about goals of care and hospice. ELECTRONIC GLUING MACHINE OPERATOR met with the patient at bedside this morning to review discharge planning. Pt continues to state that she "will only go home, I won't go back to the snf." Pt states that she would be open to [facility] visiting but is not willing to pay the $70 share of cost. Pt states that even without caregivers to help her out of bed, provide food and assist with ADLs, she still intends to discharge home. Pt states that if she needs anything "I'll just push my button, right here" showing ELECTRONIC GLUING MACHINE OPERATOR her life alert button hanging from her neck. ELECTRONIC GLUING MACHINE OPERATOR offered to discuss possible home health referral for wound care and physical therapy with the MD; pt states "absolutely not." Pt states she does not have a primary operator; ELECTRONIC GLUING MACHINE OPERATOR offered to make the patient an appointment with the residency clinic, again patient refusing this service. Pt states that she is well connected with friends from but has not gone in a long time due to mobility. Pt states that her advent is the [facility] in [place]. Pt provided verbal consent for ELECTRONIC GLUING MACHINE OPERATOR to speak with the advent staff and/or cuff turner machine operator about coordinating meals and regular check-ins. t/c to Elpidio Jc, Internet Salesperson with [facility] ([phone]) and ([phone]). He states that he is very aware of the pt's decline in health, her ability to care for self and refusal of services. The advent has been checking in on the patient periodically but not daily for several months. ELECTRONIC GLUING MACHINE OPERATOR informed him that the pt was likely to be discharged today. He will coordinate with his staff to deliver the patient food tonight and provide daily check-ins and meals for the next seven days until the pt's [facility] CM can put more permanent services for meal delivery in place. ELECTRONIC GLUING MACHINE OPERATOR spoke with attending MD about the patient intent to discharge home without supportive services from [facility] and declining an [facility] Residency appointment for follow up care. ELECTRONIC GLUING MACHINE OPERATOR informed patient that advent staff members will visit and provide food to the pt for the next week. She is appreciative of this. ELECTRONIC GLUING MACHINE OPERATOR reviewed the dangers and risks of discharging home in her current condition without supportive services. Pt states "I don't know why you are all so worried about me, I'll be fine!" Pt has not been OOB, in unable to ambulate and her ability to maintain upright seated position has not been tested. Pt complains of pain when ELECTRONIC GLUING MACHINE OPERATOR inquired if pt is able to sit upright in a wheelchair stating "No it hurts my sores." Pt will likely require BLS transport home. ELECTRONIC GLUING MACHINE OPERATOR reviewed possibility for an out of pocket expense billed to her by Medicare if they do not feel she meets BLS criteria. Pt states that she is unable to transport any other way and states "I hope I don't get a bill because I can't pay it." A: Pt who is refusing medical care and all supportive services offered to the patient by ELECTRONIC GLUING MACHINE OPERATOR. P: Pt to discharge home via BLS; pt declining all supportive services from ELECTRONIC GLUING MACHINE OPERATOR. Pt's advent christianity will visit the patient daily and provide meals to her. YANA Guevara Addendum: 02/08/17 at 1419 by REBA ELLSWORTH ELECTRONIC GLUING MACHINE OPERATOR left messages for the identified family members mentioned in palliative care notes. No answer from any family. ELECTRONIC GLUING MACHINE OPERATOR requested return phone call from all to discuss patient's care and discharge.
--- NOTE | 2017-02-08 11:43 | PCM.DC.MED ---
Discharge Summary Date of Service Feb 08, 2017 Dates of Hospitalization Date of Hospital Admission Feb 05, 2017 at 23:17 Date of Discharge: Feb 08, 2017 Providers: Admitting Physician: Narciso Abreu MD Primary Care Physician: Juventino Attending Physician: Narciso Abreu MD Diagnosis at Time of Discharge Diagnosis at Time of Discharge Inability to care for self, Exposed Satge 4 sacral ulcer, DM2, CAD, HTN, Multiple Sclerosis Consultations Energy Crop Farmer, palliative care Brief History Per admission H&P: 81-year-old woman who was brought to the [facility] emergency department by EMS after being declined services at [facility] emergency department due to multiple visits and patient refusing treatment. Reportedly, she presses her life alert button often and is bedridden and unable to take care of self, she reports not eating for the last 10 days because she does not have a caregiver. She says she is angry at the blemish remover brought her to the hospital after she told him not to, however she reportedly lays in her bed 24 hours a day, unable to walk, and has a substantial bedsore. In the ER vital signs were 36.8, pulse 60 heart rate 22 blood pressure 139/39 and 98% on room air. She declined all care only requesting food. States she is nauseous and has abdominal pain from not eating, and declined to answer other questions regarding her health for current review of systems stating "it is in the chart" and she is hungry. Due to the patient declining service, and only stating being hungry she was cleared for discharge whenever EMS stated they would not bring her back to her home due to her inability to care for herself, citing she was found eating cat food for survival in her home. family assessment worker in the emergency room physician in conjunction with Hospital manufacture specialist transportation dispatch manager discussed the case, and when presented with the choices patient agreed for admission through the night. Palliative medicine consulted to assist patient in determination of goals of care. Prior to visiting, reviewed her records in the EMR in detail and spoke with Dr. Edwards, her hospitalist. Later in the day reviewed her status with AUDIO VISUAL AIDE/family caseworker. Contacted [facility] and obtained records from her last 3 visits to the emergency room there. These are appended to her paper chart. They note multiple calls to EMS, at times greater than 10 per day, then with patient refusing evaluation or care. EMS reports her home is in terrible repair, patient found in bed with feces and urine. Records indicate that she has been evaluated for decisional capacity repeatedly and always passes. Repeatedly simply refuses care. Brought in at least once by police when she threatened she would kill herself if EMS did not visit her. Previously was enrolled in hospice, with diagnosis of "multifocal osteomyelitis ". Discontinued hospice in August,. Hospice records obtained and reviewed and now appended to her hospital chart. By report and records from [facility], has been essentially bedbound. Used to receive Meals on Wheels but this was discontinued at some point. Surviving by eating cat food. Admission notes here indicate large sacral decubitus ulcer down to bone. When we arrived to see the patient, she was lying in bed sleeping. Awakens easily and was unhappy about that. Stated repeatedly that we were not helping and that she did not want to talk with us. I returned later in the afternoon. She once again told me that she was irritated that I was there, that she did not need anything from me, that she wanted to be left alone, and when I told her she would probably be discharged to home tomorrow she said that that was fine. Hospital Course 81-year-old woman with severe self-neglect and inability to care for self, [facility] eating Food for survival, declines all medical care. Decubitus ulcer, present on admission, evaluation and treatment initiated. -- Wound care consultation -- Nursing wound management. -- Oxycodone 5 mg every 4 hours when necessary as she is in terrible pain and return her to examine the wounds -- Patient is resisting efforts to turn her to treat her ulcer, which is worsening by the day. Inability to care for self resulting in self-neglect, POA, active -- I reviewed her ER documents admission time notes, she continues to refuse care and seems to be here only for food. -- Social work found patient is competent and able to make self decisions. -- Full diet while here. -- Patient declines all help at this point -- manager audio and licensed clinical social worker consultations. -- Consulted Dr. Quick from psych to help with decisional Capacity. We appreciate his recommendations -- Dr. Quick and Dr. Edwards feels she is decisional. She is cognitively intact. Wheezing and cough: -- Albuterol treatments when necessary -- Tessalon Perles when necessary DVT prophylaxis declined -- Pain management with home medications -- GI prophylaxis not indicated Diabetes mellitus: Chronic, active Patient has no medications. Currently refusing medical care Systolic heart failure chronic active: -- Continue medication furosemide, Toprol Heart disease, chronic active -- Continue aspirin and continue metoprolol Depression, chronic active -- Continue amitriptyline and citalopram Patient admitted under observational status with expected length of stay less than 2 midnights for severity of present symptoms, complexities of treatment plan and risk for adverse events Disposition: Patient is familiar to many services that include, DESKTOP SUPPORT MANAGER, HH, [facility], had personality conflicts and was unsuccessful in achieving a positive relationship. [facility] has seen her in the past, she was under the program and was discharged. They had recommended for her to be placed in detention prior to requesting their service again. Pt not interested in NH placement. She declined HH. She agrees to d/c home with taoist support. As she is cognitively intact, we have to discharge her home as she is not accepting medical treatments. CODE STATUS: Full code Exam Vital Signs (Last) Date Time Temp Pulse Resp B/P Pulse Ox O2 Delivery O2 Flow Rate FiO2 02/08/17 08:00 102 16 111/70 97 Room Air 02/07/17 22:52 36.7 Exam General: Laying in bed, no apparent distress. Foul-smelling, disheveled, unkept , hirsutic HEENT: Normocephalic, atraumatic, EOMI grossly, right eye is mildly erythematous , halitosis, poor dentition, matted hair, very hard of hearing. Cardiovascular: Patient would not stop talking during this examination, unable to appreciate cardiac sounds Pulmonary: Very coarse breath sounds diffuse, expiratory wheezing, diffuse rhonchi. Wet cough. Extremities: No edema appreciated. Bilateral feet are severely wounded, almost appeared to be traumatic in nature, toenails are cracked and flaking, foot drop. Neuro: Alert and oriented MSK: Patient was unable to demonstrate inability to roll off of her left side, there is a substantial decubitus ulcer to her back -6 cm sacroiliac ulcer, with exposed bone, purulent and bloody discharge Psych: Very irritable when asked to allow a physical examination She appears to have become a bit more withdrawn and resigned as more ppl asked her questions, Discharge Medications Discharge Medications Amitriptyline (Amitriptyline) 25 Mg Tab 25 MG PO HS (Reported) Aspirin (Aspirin) 81 Mg Tablet 81 MG PO DAILY (Reported) Citalopram (Citalopram) 10 Mg Tablet 10 MG PO DAILY (Reported) Furosemide (Furosemide) 40 Mg Tablet 40 MG PO QAM (Reported) Metoprolol Tartrate (Metoprolol Tartrate) 25 Mg Tablet 25 MG PO BID (Reported) Multivitamin (Multi Vitamin Daily) 1 Each Tablet 1 EACH PO DAILY (Reported) As needed Acetaminophen (Acetaminophen) 500 Mg Tablet 500 MG PO Q6H PRN PRN For Pain ( Reported) Ipratropium/Albuterol Sulfate (Iprat-Albut 0.5-3(2.5) mg/3 mL Inhalant Soln) 3 Ml Ampul.neb 3 ML IH Q6 PRN PRN For Shortness of Breath (Reported) Sennosides (Senna) 8.6 Mg Tablet 8.6 MG PO BID PRN PRN For Constipation ( Reported) Time spent >30 min Felicity Edwards DO Feb 08, 2017 11:43
[2017-02-08 12:56] VITALS: BP 105/65; PULSE 76; RESP 18; O2SAT 99
--- NOTE | 2017-02-08 14:19 | NUR ---
Social Work: Discharge D/A: Pt discussed with . MD is discharging the patient as she continues to decline medical care and services from [facility] staff. LIGHT RAIL TRANSIT OPERATOR informed the patient of her discharge and confirmed that she does not feel that she can safely sit in a wheelchair and requires BLS due to her sacral decubitus wounds Pt denies any thoughts of suicide, homicide and a/v hallucinations. Pt is not gravely disabled due to a mental illness and has been deemed to be decisional from psychiatry. Pt setup with BLS transport for 3:30pm. Pt's latter-day staff will come to provide her with daily meals. APS report has been made, Administration has been alerted to the pt's refusal of care and services. P: Pt to discharge home via BLS at 3:30pm. [employer] members will provide the pt with food and daily check-ins. YANA Guevara
--- NOTE | 2017-02-08 15:00 | NUR ---
Discharge Pt. was given discharge instructions. Med list gone over with pt. in detail. Pt. stated that "my medications are delivered to me from the [facility]." Hard copy of prescription given. Pt.'s holguin catheter discontinued. Brief was changed as well as abd pad covering pt.s sacral wound. Pt. very restless during turn, grabbed at nurses hands, and reported that "never mind, I will just go with the poop home, have the home nurse change the brief." Pt. did not bring any home belongings, with the exception of upper dentures and reading glasses. Pt. went home in a hospital gown, transported via BLS. Approx. discharge time being 1535.
--- NOTE | 2017-02-09 08:22 | PCM.DIMED ---
Discharge Instructions Date of Service Feb 08, 2017 Dates of Hospitalization Feb 05, 2017 at 23:17 Discharge Diagnosis Discharge Diagnosis Failure to care for self, stage 4 sacral ulcer Diet Discharge Diet: No restrictions Activity Discharge Activity: Other (bed bound) Call your provider Call your provider for: Fever or Chills, Shortness of breath, Bleeding, Chest pain, Vomitting, Excessive diarrhea, Weakness (unilateral), Other Patient Instructions Patient Instructions You have declined all medical care we offered so far which included vitals signs , medications and lab work. We have offered you palliative care and NH placement options as well as Home Health care. You have declined all of these. Only medication you asked for is ibuprofen prior to discharge We respect your wishes to go home to your cat as you are deemed capable of making your own decisions. We understand that you will ask your gnosticist support system to make regular visits to your home. Follow-up plan Please see [facility] residency clinic for f/u in one-two weeks Felicity Edwards DO Feb 08, 2017 11:42
== END 2017-02-08 15:30 | disposition home or self-care (01) ==
LOC: SED 19:54 → MOC 23:17 → INTOOBSV 23:17
PROVIDERS: ADMIT Hospitalist; ATTEND Hospitalist
DX: L89.154 Pressure ulcer of sacral region, stage 4 (principal); Z60.2 Problems related to living alone; E11.9 Type 2 diabetes mellitus without complications; I50.22 Chronic systolic (congestive) heart failure; I51.9 Heart disease, unspecified; F32.9 Major depressive disorder, single episode, unspecified; G35 Multiple sclerosis; I21.4 Non-ST elevation (NSTEMI) myocardial infarction; N30.80 Other cystitis without hematuria; Z95.1 Presence of aortocoronary bypass graft; Z79.82 Long term (current) use of aspirin; Z79.51 Long term (current) use of inhaled steroids
CPT/HCPCS: 90791; 94664; 99285; G0378; J7620